=== PATIENT | male | born 1955 | race Caucasian/White ===

== ENCOUNTER 2020-03-14 16:31 | Emergency (ER) | payer BC ==
[~2020-03-14] VITALS: Ht 180.3 cm; Wt 85.5 kg
[2020-03-14] MEDS ORDERED: KEFLEX500 M1 PO (17:31)
[2020-03-14 17:48] VITALS: BP 123/79
== END 2020-03-14 17:57 | disposition home or self-care (01) | DRG 605 ==
LOC: ED 16:31
PROC: 0HQEXZZ Repair Left Lower Arm Skin, External Approach (ICD-10-PCS; principal; 2020-03-14)
DX: S51.812A Laceration without foreign body of left forearm, initial encounter (principal); N18.30 Chronic kidney disease, stage 3 unspecified; W27.8XXA Contact with other nonpowered hand tool, initial encounter; Y93.H3 Activity, building and construction; Y92.009 Unspecified place in unspecified non-institutional (private) residence as the place of occurrence of the external cause